=== PATIENT | male | born 1975 | race African-American/Black ===

== ENCOUNTER 2023-08-21 16:06 | Emergency (ER) | payer MEDICAID ==
[~2023-08-21] VITALS: Ht 172.7 cm; Wt 74.8 kg
[2023-08-21 16:23] VITALS: BP_SYST 137; PULSE 110; RESP 19; TEMP 98; O2SAT 96
[2023-08-21] MEDS ORDERED: PANTOPRAZOLE SODIUM 40 MG/VIAL (PROTONIX) IVP ONE (16:30)
[2023-08-21] MEDS ORDERED: NACL 0.9% 1,000 ML IV ONE (16:30)
[2023-08-21 16:36] LABS: BASOPHILS # (AUTO) 0.1 K/uL (0.0-0.2); BASOPHILS % (AUTO) 0.3 % (0.0-2.0); EOSINOPHILS % (AUTO) 0.1 % (0.0-4.0); HEMATOCRIT 44.7 % (36-54); HEMOGLOBIN 15.3 g/dL (14.0-18.0); LYMPHOCYTES # (AUTO) 0.9 K/uL (1.0-5.5); LYMPHOCYTES % (AUTO) 4.9 % (20.5-51.5); MEAN CORPUSCULAR HEMOGLOBIN 26 pg (27-31); MEAN CORPUSCULAR HGB CONC 34 % (32-36); MEAN CORPUSCULAR VOLUME 75 fL (79.0-98.0); MONOCYTES # (AUTO) 1.9 K/uL (0.0-1.0); MONOCYTES % (AUTO) 10.6 % (1.7-9.3); NEUTROPHILS % (AUTO) 84.1 % (40.0-70.0); PLATELET COUNT (AUTO) 386 K/uL (130-430); RED BLOOD CELL COUNT(AUTO) 5.96 MIL/uL (4.2-6.2); RED CELL DISTRIBUTION WIDTH 14.8 % (9.0-15.0); WHITE BLOOD COUNT (AUTO) 17.8 K/uL (4.8-10.8)
[2023-08-21 16:48] LABS: ANION GAP 8 (5-15); CALCIUM 9.6 mg/dL (8.4-11.0); CARBON DIOXIDE 32 mmol/L (23-29); CHLORIDE 106 mmol/L (98-107); CREATININE 1.21 mg/dL (0.55-1.30); GFR AFRICAN AMERICAN 82 mL/min (>90); GLUCOSE 113 mg/dL (74-106); POTASSIUM 4.2 mmol/L (3.5-5.1); SODIUM SERUM 146 mmol/L (136-145); UREA NITROGEN, BLOOD 29 mg/dL (8-21)
[2023-08-21 16:56] LABS: GFR NON AFRICAN-AMERICAN 68 mL/min (>90)
[2023-08-21 17:05] LABS: ALANINE AMINOTRANSFERASE 31 U/L (12-78); ALBUMIN 4.1 g/dL (3.4-4.8); ASPARTATE AMINOTRANSFERASE 19 U/L (10-37); BILIRUBIN,DIRECT 0.1 mg/dL (0.0-0.3); LIPASE 16 U/L (16-77); TOTAL BILIRUBIN 0.4 mg/dL (0.0-1.0)
[2023-08-21] MEDS ORDERED: PANTOPRAZOLE SODIUM 40 MG/VIAL (PROTONIX) ONE (19:08)
[2023-08-21 21:32] VITALS: BP_SYST 123; PULSE 107; RESP 17; TEMP 99.8; O2SAT 96
[2023-08-21] MEDS ORDERED: PRO40 PO (23:31)
== END 2023-08-21 21:32 | disposition home or self-care (01) ==
LOC: SED 16:06
DX: K20.90 Esophagitis, unspecified without bleeding (principal); E86.0 Dehydration; R11.10 Vomiting, unspecified; R07.9 Chest pain, unspecified; Z79.899 Other long term (current) drug therapy
CPT/HCPCS: 99285; 74176; 96374; 96361; 80076; 80048; 83690; 85025; 84484; 36415; 93005; 76376; C9113; J7030